=== PATIENT | female | born 1985 | race Caucasian/White ===

== ENCOUNTER 2017-01-05 17:00 | Inpatient (IN) | payer MEDICARE, MEDICAID ==
[2017-01-05 17:11] VITALS: BMI 26.5
[2017-01-09] MEDS ORDERED: Bacitracin Zinc Ointment 30 gm TUBE ONE (09:17)
[2017-01-09] MEDS ORDERED: Sodium Chloride 0.9% 10 ML ONE (09:17)
[2017-01-09] MEDS ORDERED: Midazolam HCl 2 mg/2 ml Vial ONE ×3 (09:23→14:52)
[2017-01-09] MEDS ORDERED: Fentanyl 100 MCG/2 ML VIAL ONE ×5 (10:41→14:05)
[2017-01-09] MEDS ORDERED: Propofol 200 MG/20 ML VIAL ONE (11:11)
[2017-01-09] MEDS ORDERED: Esmolol 100 MG/10 ML VIAL ONE (11:11)
[2017-01-09] MEDS ORDERED: PHENYLEPHRINE-NS 100 MCG/ML 10 ML SYRINGE ONE (11:11)
[2017-01-09] MEDS ORDERED: Glycopyrrolate 0.2 MG/ML 5 ML SYRINGE ONE (11:11)
[2017-01-09] MEDS ORDERED: Lidocaine 1% PF 5 ML VIAL ONE (11:11)
[2017-01-09] MEDS ORDERED: diphenhydrAMINE HCl 50 MG/ML 1 ML VIAL ONE (11:11)
[2017-01-09] MEDS ORDERED: Ondansetron HCl/PF 4 MG/2 ML Vial ONE (11:11)
[2017-01-09] MEDS ORDERED: Hydrocortisone Sod Succ/PF 100 mg/2 ml Vial ONE (11:11)
[2017-01-09] MEDS ORDERED: Morphine Sulfate 2 MG/ML SYRINGE SLOW IVP PRN ×2 (13:13→13:46)
[2017-01-09] MEDS ORDERED: Meperidine HCl/PF 25 MG/ML VIAL SLOW IVP PRN (13:13)
[2017-01-09] MEDS ORDERED: HYDROmorphone 2 MG/ML VIAL SLOW IVP PRN (13:13)
[2017-01-09] MEDS ORDERED: Promethazine HCl 25 MG/ML VIAL SLOW IVP PRN (13:13)
[2017-01-09] MEDS ORDERED: Ketorolac Tromethamine 30 MG/ML VIAL ONE (13:37)
[2017-01-09] MEDS ORDERED: HYDROcodone/Acetaminophen 10/325 mg Tablet PO PRN ×3 (13:46→14:14)
[2017-01-09] MEDS ORDERED: diphenhydrAMINE HCl 25 MG CAP PO PRN ×2 (13:46→18:48)
[2017-01-09] MEDS ORDERED: Promethazine HCl 25 MG/ML VIAL IM PRN ×2 (13:46→18:48)
[2017-01-09] MEDS ORDERED: Ondansetron HCl/PF 4 MG/2 ML Vial IVP PRN (13:46)
[2017-01-09] MEDS ORDERED: Promethazine HCl 12.5 MG SUPP PR PRN (13:46)
[2017-01-09] MEDS ORDERED: Zolpidem Tartrate 5 MG TAB PO PRN (13:46)
--- NOTE | 2017-01-09 13:47 | OP ---
DATE OF PROCEDURE: 01/09/2017 SURGEON: Carl Tello M.D. GAMBLING CASHIER: MARS Jama PROCEDURE: Anterior cervical diskectomy C4 through C6, removal of hardware C3-4, exploration spinal fusion C3-4. Interbody arthrodesis, intravertebral biomechanical device, local morselized autograf t, demineralized bone matrix, anterior titanium instrumentation C4-C6 posterior approach C5-6 bobby ctomy, C3-C6 posterolateral arthrodesis, lateral mass screw instrumentation, demineralized bone matr ix, and local morselized autograft C3-C6. DESCRIPTION OF PROCEDURE: The patient was brought into the operating room and intubated. She was p ositioned supine with the head in modest extension on a gel-filled donut. An incision was made in t he right precervical area and dissecting medial to the sternocleidomastoid muscle we identified the anterior cervical spine and the prior plate. The prior plate was removed without difficulty and C3- 4 fusion was explored and I could not be convinced that it was solid. Nevertheless, the interverteb ral device did seem to be secure and so we did not attempt to remove this. Next, we placed distract ion between C4 and C6 and completely decompressed the neural elements beneath the posterior longitud inal ligament from foramen to foramen. The bony endplates were then decorticated for the purpose of arthrodesis and appropriately sized intravertebral biomechanical PEEK device was brought into the f ield, filled with demineralized bone matrix and local morselized autograft, and tapped into place se curely at C4-5 and C5-6. Next, an anterior plate was brought in the field and secured to C4, C5 and C6 using two 14 mm screws at each level. The wound was then extensively irrigated, immaculate hemo stasis was secured, and the wound was closed in anatomic layers over a drain. Pinions were then mesha yasmeen and the patient was rolled in the prone position on gel-filled chest rolls with the head fixed i n neutral position. Incision made exposing C3-C6 and our level was confirmed by x-ray. We performe d small interlaminar C5-6 laminectomy for the purpose of decompression and next placed right-sided l ateral mass screws at C3, C4, C5, and C6. A thomas was secured between the screws, connected by nuts w hich were final tightened. The wound was then extensively irrigated, immaculate hemostasis was secu red. A combination of demineralized bone matrix and local morselized autograft was laid over the la minar and posterolateral surfaces for the purpose of arthrodesis. Vancomycin powder was applied and the wound was then closed in anatomic layers.
[2017-01-09] MEDS ORDERED: Milk Of Magnesia 30 ML UDCUP PO PRN (13:50)
[2017-01-09] MEDS ORDERED: CIMZIA SC SCH (14:30)
[2017-01-09] MEDS ORDERED: Midazolam HCl 2 mg/2 ml Vial SLOW IVP SCH (17:30)
[2017-01-09] MEDS ORDERED: Ketorolac Tromethamine 30 MG/ML VIAL IVP PRN (18:48)
[2017-01-09] MEDS ORDERED: Fentanyl 5000 MCG/250 ML CADD IV PRN (18:48)
[2017-01-09] MEDS ORDERED: diphenhydrAMINE HCl 50 MG/ML 1 ML VIAL IM/IV PRN (18:48)
[2017-01-09] MEDS ORDERED: Ketorolac Tromethamine 30 MG/ML VIAL IVP SCH (20:00)
[2017-01-09] MEDS: Sodium Chloride 0.9% 1,000 ML IV SCH (20:23)
[2017-01-09] MEDS ORDERED: Diclofenac Sodium 25 mg Tablet PO SCH (21:00)
[2017-01-09] MEDS: Hydroxychloroquine Sulfate 200 MG TAB PO SCH (21:23)
[2017-01-09] MEDS: Ondansetron HCl/PF 4 MG/2 ML Vial IVP PRN (21:36)
[2017-01-09] MEDS ORDERED: DICLOFENAC 75 MG PO SCH (22:15)
[2017-01-09] MEDS: methylPREDNISolone 4 mg Tablet PO SCH (22:39)
[2017-01-09] MEDS: Zolpidem Tartrate 5 MG TAB PO PRN (23:21)
[2017-01-10] MEDS: Cyclobenzaprine 10 MG TAB PO PRN ×2 (01:58→21:24)
[2017-01-10] MEDS: Ondansetron HCl/PF 4 MG/2 ML Vial IVP PRN (03:54)
[2017-01-10] MEDS: Sodium Chloride 0.9% 1,000 ML IV SCH ×2 (03:55→17:48)
[2017-01-10 06:22] LABS: Chloride 106 mmol/L (98-107)
[2017-01-10 06:30] LABS: BUN (Urea Nitrogen) 15 mg/dL (7.0-18.7); Calc. Creatinine Clearance 141 mL/min (70-130); Calcium 8.7 mg/dL (7.8-10.44); Carbon Dioxide 16 mmol/L (22-29); Estimated GFR-MDRD Greater than 90
[2017-01-10 07:30] LABS: Anion Gap 16 mmol/L (10-20)
[2017-01-10 07:57] LABS: #Basophils 0.1 thou/uL (0.0-0.2); #Lymphocytes 1.3 thou/uL (1.20-3.40); #Monocytes 0.9 thou/uL (0.11-0.59); #Neutrophils 7.6 thou/uL (1.40-6.50); %Basophils 0.5 % (0.0-1.0); %Eosinophils 0.3 % (0.0-10.0); %Lymphocytes 12.7 % (21.0-51.0); %Monocytes 9.4 % (0.0-10.0); Hematocrit 36.4 % (36.0-47.0); Mean Platelet Volume 7.8 fL (7.4-10.4); Red Blood Cell (RBC) Count 4.01 mill/uL (4.20-5.40); White Blood Cell (WBC) Count 9.9 thou/uL (4.8-10.8)
[2017-01-10] MEDS ORDERED: methylPREDNISolone 4 mg Tablet PO SCH ×2 (08:00→21:00)
[2017-01-10] MEDS ORDERED: ELINEST PO SCH (09:00)
[2017-01-10] MEDS: methylPREDNISolone 4 mg Tablet PO SCH ×2 (09:29→12:12)
[2017-01-10] MEDS: Leflunomide 10 mg Tablet PO SCH (09:29)
[2017-01-10] MEDS: Loratadine 10 MG TAB PO SCH (09:30)
[2017-01-10] MEDS: Hydroxychloroquine Sulfate 200 MG TAB PO SCH ×2 (09:30→20:57)
[2017-01-10] MEDS: Fluticasone Propionate Nasal Spray 16 gm Bottle NASAL SCH (09:30)
[2017-01-10] MEDS: DICLOFENAC 75 MG PO SCH ×2 (09:31→20:56)
--- NOTE | 2017-01-10 10:01 | EKG ---
Test Reason : PREOP Blood Pressure : / mmHG Vent. Rate : 122 BPM Atrial Rate : 122 BPM P-R Int : 128 ms QRS Dur : 076 ms QT Int : 320 ms P-R-T Axes : 074 096 046 degrees QTc Int : 456 ms Sinus tachycardia Rightward axis Borderline ECG When compared with ECG of 23-MAY-2011 07:31, No significant change was found Confirmed by DINESH MONET ([id number]) on 01/10/2017 10:00:22 AM Referred By: WENDY Confirmed By:DINESH MONET
[2017-01-10] MEDS: Ketorolac Tromethamine 30 MG/ML VIAL IVP SCH ×3 (12:10→23:16)
[2017-01-10] MEDS: HYDROcodone/Acetaminophen 5/325 mg Tablet PO SCH ×2 (12:11→17:44)
[2017-01-10] MEDS: diphenhydrAMINE HCl 50 MG/ML 1 ML VIAL IVP PRN ×2 (12:20→21:04)
[2017-01-10] MEDS ORDERED: Sodium Chloride 0.65% Nasal 44 ML BOT EA NARE PRN (18:31)
[2017-01-10] MEDS: Bisacodyl 5 MG TAB PO PRN (21:21)
[2017-01-10] MEDS: ELINEST PO SCH (21:21)
[2017-01-10] MEDS: Zolpidem Tartrate 5 MG TAB PO PRN (23:20)
[2017-01-11] MEDS: tiZANidine HCl 4 MG TAB PO PRN (03:43)
[2017-01-11] MEDS: Ketorolac Tromethamine 30 MG/ML VIAL IVP SCH ×4 (05:16→23:40)
[2017-01-11] MEDS: Sodium Chloride 0.9% 1,000 ML IV SCH ×2 (06:13→20:54)
[2017-01-11] MEDS ORDERED: methylPREDNISolone 4 mg Tablet PO SCH (08:00)
[2017-01-11] MEDS: HYDROcodone/Acetaminophen 5/325 mg Tablet PO SCH ×3 (08:50→18:42)
[2017-01-11] MEDS: Fluticasone Propionate Nasal Spray 16 gm Bottle NASAL SCH (08:52)
[2017-01-11] MEDS: Hydroxychloroquine Sulfate 200 MG TAB PO SCH ×2 (08:52→20:56)
[2017-01-11] MEDS: Leflunomide 10 mg Tablet PO SCH ×2 (08:53→20:56)
[2017-01-11] MEDS: methylPREDNISolone 4 mg Tablet PO SCH (08:55)
[2017-01-11] MEDS: DICLOFENAC 75 MG PO SCH ×2 (08:55→20:56)
[2017-01-11] MEDS: Loratadine 10 MG TAB PO SCH (08:55)
[2017-01-11] MEDS: diphenhydrAMINE HCl 50 MG/ML 1 ML VIAL IVP PRN ×2 (10:31→21:00)
[2017-01-11] MEDS: ELINEST PO SCH (20:56)
[2017-01-11] MEDS: Cyclobenzaprine 10 MG TAB PO PRN (21:00)
[2017-01-11] MEDS: Bisacodyl 5 MG TAB PO PRN (21:09)
[2017-01-11] MEDS: Zolpidem Tartrate 5 MG TAB PO PRN (23:42)
[2017-01-12] MEDS: Ketorolac Tromethamine 30 MG/ML VIAL IVP SCH (05:26)
[2017-01-12] MEDS ORDERED: methylPREDNISolone 4 mg Tablet PO SCH (08:00)
[2017-01-12] MEDS: Hydroxychloroquine Sulfate 200 MG TAB PO SCH ×2 (08:31→21:33)
[2017-01-12] MEDS: methylPREDNISolone 4 mg Tablet PO SCH (08:32)
[2017-01-12] MEDS: Loratadine 10 MG TAB PO SCH (08:32)
[2017-01-12] MEDS: HYDROcodone/Acetaminophen 5/325 mg Tablet PO SCH (08:32)
[2017-01-12] MEDS: Sodium Chloride 0.9% 1,000 ML IV SCH ×2 (08:35→19:30)
[2017-01-12] MEDS: DICLOFENAC 75 MG PO SCH ×2 (08:36→21:34)
[2017-01-12] MEDS: Fluticasone Propionate Nasal Spray 16 gm Bottle NASAL SCH (08:36)
[2017-01-12] MEDS ORDERED: traMADol HCl 50 MG TAB PO PRN (09:26)
[2017-01-12] MEDS ORDERED: HYDROcodone/Acetaminophen 10/325 mg Tablet PO PRN (09:26)
[2017-01-12] MEDS: HYDROcodone/Acetaminophen 10/325 mg Tablet PO PRN ×3 (13:48→22:35)
[2017-01-12] MEDS: traMADol HCl 50 MG TAB PO PRN ×2 (15:19→21:32)
[2017-01-12] MEDS: Cyclobenzaprine 10 MG TAB PO PRN (21:32)
[2017-01-12] MEDS: Leflunomide 10 mg Tablet PO SCH (21:33)
[2017-01-12] MEDS: ELINEST PO SCH (21:34)
[2017-01-12] MEDS: Hydrocortisone 1% Cream 1.5 GM Packet TOP PRN (22:09)
[2017-01-13] MEDS: Zolpidem Tartrate 5 MG TAB PO PRN (00:09)
[2017-01-13] MEDS: tiZANidine HCl 4 MG TAB PO PRN (04:09)
[2017-01-13] MEDS: HYDROcodone/Acetaminophen 10/325 mg Tablet PO PRN ×2 (04:10→09:08)
[2017-01-13] MEDS ORDERED: methylPREDNISolone 4 mg Tablet PO SCH (08:00)
[2017-01-13] MEDS: Loratadine 10 MG TAB PO SCH (09:07)
[2017-01-13] MEDS: methylPREDNISolone 4 mg Tablet PO SCH (09:07)
[2017-01-13] MEDS: Hydroxychloroquine Sulfate 200 MG TAB PO SCH (09:07)
[2017-01-13] MEDS: DICLOFENAC 75 MG PO SCH (09:10)
[2017-01-13] MEDS: Fluticasone Propionate Nasal Spray 16 gm Bottle NASAL SCH (09:10)
--- NOTE | 2017-01-13 10:24 | DIS ---
HOSPITAL COURSE: Patient is a 31-year-old female with past medical history of JRA who was seen in the office for severe cervical stenosis and recently underwent C4-C6 ACDF and posterior fus ions at C3-C6. Patient tolerated the procedure well. There were no operative complications. Intra operatively, there was a MARY JO drain placed posteriorly. There was minimal output following transfer t o the floor from the MARY JO drain, therefore it was removed the next morning. Patient did have some iss ues with pain control and therefore was ordered to CLIENT APPLICATION SUPPORT SPECIALIST. This was weaned easily throughout her admis sanjana and she now have good pain control with p.o. Wilton. She has been ambulatory through the depart ment. She is tolerating her diet and voiding appropriately. We will plan to dismiss the patient to home. I have left her prescriptions for Wilton, Zanaflex and Keflex. She will follow up in the off ice in 1 week with appointment as scheduled. I have discussed home care precautions and reason to r each out to us sooner. Please reach out to the Neurosurgery Service for additional questions or con cerns.
[2017-01-13 10:28] VITALS: BP 150/88; TEMP 98.1
[2017-01-13] MEDS: Sodium Chloride 0.9% 1,000 ML IV SCH (11:12)
[2017-01-13] MEDS: Hydrocortisone 1% Cream 1.5 GM Packet TOP PRN (12:03)
[2017-01-14] MEDS ORDERED: methylPREDNISolone 4 mg Tablet PO SCH (08:00)
== END 2017-01-13 12:49 | disposition home or self-care (01) | DRG 30 ==
LOC: SURG A 01-09 06:43 → SJJU 01-09 17:16
PROVIDERS: ADMIT Neurological Surgery; ATTEND Neurological Surgery
PROC: 0RT30ZZ Resection of Cervical Vertebral Disc, Open Approach (ICD-10-PCS; principal; 2017-01-09)
PROC: 0PP304Z Removal of Internal Fixation Device from Cervical Vertebra, Open Approach (ICD-10-PCS; 2017-01-09)
PROC: 0RG20A0 Fusion of 2 or more Cervical Vertebral Joints with Interbody Fusion Device, Anterior Approach, Anterior Column, Open Approach (ICD-10-PCS; 2017-01-09)
PROC: 01N10ZZ Release Cervical Nerve, Open Approach (ICD-10-PCS; 2017-01-09)
PROC: 0RG20A1 (ICD-10-PCS; 2017-01-09)
DX: M54.12 Radiculopathy, cervical region (principal); M48.02 Spinal stenosis, cervical region; F41.9 Anxiety disorder, unspecified; M06.9 Rheumatoid arthritis, unspecified; Z91.041 Radiographic dye allergy status; Z96.612 Presence of left artificial shoulder joint; Z96.653 Presence of artificial knee joint, bilateral; Z96.662 Presence of left artificial ankle joint; Z96.661 Presence of right artificial ankle joint
CPT/HCPCS: 36415; 76001; 80048; 85025; 93005; 93010; 96374; A4216; C1713; C1768; G8978-GP-CJ; G8979-GP-CJ; G8980-GP-CJ; G8987-GO-CJ; G8988-GO-CI; J0131; J1170; J1200; J1720; J1885; J2001; J2250; J2270; J2405; J2704; J3010; J3370; J3490

== ENCOUNTER 2017-01-31 15:06 | Outpatient (CLI) | payer MEDICARE, MEDICAID ==
--- NOTE | 2017-01-31 19:35 | RAD ---
CERVICAL SPINE: 01/31/17 Three views. HISTORY: Cervical stenosis. Postop followup. Correlation made to CT of 12/22/16. Anterior discectomy and fusion procedure noted with plate and screws now transfixing C4, C5 and C6 w ith interbody implants. Disc implant remains at C3-4. Loss of disc space and evidence of partial fus ion at C3-4. Posterior pedicle screws are now noted on the right at C3, C4, C5 and C6 levels. Posterior skin stap les are seen. Vertebral body alignment is preserved. IMPRESSION: Postoperative changes cervical spine as described. POS: [facility]
== END 2017-01-31 15:07 | disposition home or self-care (01) ==
LOC: TBSIIMAG 15:06
PROVIDERS: ATTEND Physician Assistant
DX: M48.02 Spinal stenosis, cervical region (principal)
CPT/HCPCS: 72040

== ENCOUNTER 2017-03-15 16:03 | Outpatient (CLI) | payer MEDICARE, MEDICAID ==
--- NOTE | 2017-03-15 16:40 | RAD ---
RADIOGRAPH CERVICAL SPINE 3 VIEWS: 03/15/17 HISTORY: 31-year-old female with diagnosis of "cervical region disc degeneration. M50.30." "Followup." COMPARISON: Seven view plain radiographic study of 12/01/16. FINDINGS: Again noted is the severe joint space narrowing on the right, and moderate to severe joint space narr owing on the left, of the atlantoaxial joint, with mildly undulating articular surfaces. 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 In order to be consistent with the labeling of levels wit h the prior study, the patient will be considered to have developmental fusion of C2 and C3. Conseque ntly, the level with bilateral small ribs will have to be designated as T1, rather than C7 with bilat eral cervical ribs. The previously demonstrated ACDF plate and screws at C3-4 have been removed. The metallic markers for interbody cage, within the severely narrowed C3-4 disc space, with settlement into the adjacent end plates causing prominent osseous defects, remain. There has been interval placement of a new anterior metallic plate and screws at C4, C5, and C6. There has been interval widening by interbody radioluce nt cages at the C4-5 and C5-6 disc spaces. There are new unilateral right posterior element screws at C3, C4, C5 and C6. There are new laminectomy defects from C2-3 through C5-6. No prevertebral soft ti ssue swelling. Left sided upper cervical degenerative facet disease. IMPRESSION: 1. 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 For the purposes of this repo rt, The patient will be considered to have incomplete segmentation of C2 and C3 (fusion). 2. Interval removal of the anterior metallic plate and screws from C3 and C4. The interbody cage remains in that level. 3. Severe degenerative disease at C3-4. 4. New anterior cervical discectomy and fusion at C4-5-6. 5. New right sided posterior element hardware at C3-4-5-6. 6. New laminectomies from C2-3 through C5-6. 7. 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 AGUSTIN POS: [facility]
== END 2017-03-15 16:04 | disposition home or self-care (01) ==
LOC: TBSIIMAG 16:03
PROVIDERS: ATTEND Neurological Surgery
DX: M50.30 Other cervical disc degeneration, unspecified cervical region (principal); M47.812 Spondylosis without myelopathy or radiculopathy, cervical region; Z98.1 Arthrodesis status; Z98.890 Other specified postprocedural states
CPT/HCPCS: 72040